=== PATIENT | male | born 1990 | race Caucasian/White ===

== ENCOUNTER 2019-02-14 19:54 | Emergency (ER) | payer OTHER ==
[2019-02-14 20:01] VITALS: BP 124/90
--- NOTE | 2019-02-14 20:27 | EDPHY ---
H & P Time Seen by Provider: 02/14/19 20:04 HPI/ROS: CHIEF COMPLAINT: Rash HISTORY OF PRESENT ILLNESS: The patient is a 29-year-old male who presents to the emergency department the rash. He has been seen by the clinic 3 times for the same symptoms. The patient states that he was changing water here in his mobile home. He was crawling under the mobile home 1 some powder got on his arms and chest. He subsequently developed a rash. Rash is primarily on the flexor extensor surfaces of his arms and legs. He also has a rash on his armpits bilaterally. This is puretic. He denies fevers or chills. No shortness of breath. No chest pain. No visual change. REVIEW OF SYSTEMS: 10 systems were reveiwed and are negative with the exception of the elements mentioned in the history of present illness. Past Medical/Surgical History: Denies Smoking Status: Never smoked Physical Exam: Vitals noted GENERAL: Well-appearing, in no acute distress, alert. HEENT: Eyes normal to inspection, normal pharynx, no signs of dehydration. No oral or ocular involvement. NECK: Normal, supple. RESPIRATORY: Clear to auscultation bilaterally, no rales, rhonchi or wheezing. CVS: Regular rate and rhythm, no rubs, murmurs, or gallops. ABDOMEN: Soft, nontender, nondistended, no organomegaly. BACK: Normal to inspection, no CVA tenderness. SKIN: The patient has a dermatitis type rash over his chest and arms. It seems to be more focused at crease points including under his axilla and on the flexor surface of his arm. There are no blisters. No target lesions. EXTREMITIES: No pedal edema, no calf tenderness, no Homans sign or cords, no joint swelling. NEURO/PSYCH: Alert and oriented, normal mood and affect, normal motor sensory exam. No obvious cranial nerve deficit. Constitutional: Initial Vital Signs Temperature (C) 37.0 C 02/14/19 19:59 Heart Rate 98 02/14/19 19:59 Respiratory Rate 16 02/14/19 19:59 Blood Pressure 124/90 H 02/14/19 19:59 O2 Sat (%) 96 02/14/19 19:59 O2 Delivery Mode Room Air Allergies/Adverse Reactions: No Known Allergies Allergy (Unverified 02/14/19 19:57) Home Medications: Medication Instructions Recorded Banophen Anti-Itch 2% Cream 02/14/19 Hydroxyzine HCl 02/14/19 Prednisone 02/14/19 predniSONE 60 mg PO DAILY 4 Days tab 02/14/19 Medical Decision Making ED Course/Re-evaluation: The in the emergency department I discussed possible etiologies with the patient. I answered all his questions. humane agent was used. The patient will take prednisone 60 mg daily for the next 5 days. He previously took 3 days of prednisone 20 mg orally. He was given follow-up with Dermatology. He is given warnings prior to leaving. Differential Diagnosis: My differential includes but is not limited to dermatitis, allergic reaction, eczema, Larios-Bartolome syndrome, staph scalded skin Departure - Departure Disposition: Home, Routine, Self-Care Clinical Impression: Rash Condition: Good Instructions: Acute Rash (ED) Additional Instructions: Return with increasing rash, fever, shortness of breath, difficulty swallowing or any other concerns. Take your entire course of medicine. Referrals: JA[facility] LEVIN,. [Clinic] - 3-4 days, if not improved Donya Dugan MD [Medical Doctor] - 3-4 days, if not improved Prescriptions: predniSONE 60 mg PO DAILY 4 Days tab
[2019-02-14] MEDS ORDERED: predniSONE 20 MG TAB PO ONE (20:28)
== END 2019-02-14 20:45 | disposition home or self-care (01) ==
DX: R21 Rash and other nonspecific skin eruption (principal)
CPT/HCPCS: J7512